=== PATIENT | male | born 1955 | race Caucasian/White ===

== ENCOUNTER 2017-07-25 13:43 | Emergency (ER) | payer OTHER ==
[~2017-07-25] VITALS: Ht 170.2 cm; Wt 72.7 kg
[~2017-07-25 13:43] MED LIST: ATOR40TA28 PO; CITA20TA9 PO; CLOP75 PO; DIVA500T52 PO; DOCU250C91 PO; FINA5TAB41 PO; KPHOS250 PO; LEVE500T53 PO; METO25 PO; PANT40TA25 PO; TAMS0.4C32 PO; TOLT4CAP33 PO
[2017-07-25] MEDS ORDERED: MIRT15 PO (14:16)
[2017-07-25] MEDS ORDERED: ASPI81 PO (14:16)
[2017-07-25] MEDS ORDERED: TOLT2CAP27 PO (14:16)
[2017-07-25] MEDS ORDERED: LEVE250T55 PO (14:16)
[2017-07-25] MEDS ORDERED: APIX5TAB PO (14:16)
[2017-07-25] MEDS ORDERED: CETI-290 PO (14:16)
[2017-07-25] MEDS ORDERED: SENN8.6T90 PO (14:16)
[2017-07-25] MEDS ORDERED: TAMS0.4C32 PO (14:16)
[2017-07-25] MEDS ORDERED: ACETAMINOPHEN 500 MG TABLET PO ONE (14:30)
[2017-07-25 14:46] LABS: BASOPHILS # (AUTO) 0.01 K/uL (0.00-0.20); BASOPHILS % (AUTO) 0.2 % (0.0-2.0); EOSINOPHILS % (AUTO) 0.05 % (1.0-6.0); HEMOGLOBIN 14.8 g/dL (13.5-17.5); LYMPHOCYTES # (AUTO) 0.7 K/uL (1.0-4.8); LYMPHOCYTES % (AUTO) 9.9 % (22.0-44.0); MEAN CORPUSCULAR HEMOGLOBIN 32.3 pg (26.0-34.0); MEAN CORPUSCULAR HGB CONC 33.6 G/dL (31.0-37.0); MEAN CORPUSCULAR VOLUME 96 fL (80-100); MONOCYTES # (AUTO) 0.3 K/uL (0.1-1.0); MONOCYTES % (AUTO) 3.7 % (2.0-9.0); NEUTROPHILS # (AUTO) 6.2 K/uL (1.8-7.7); PLATELET COUNT (AUTO) 135 K/uL (150-450); RED BLOOD CELL COUNT(AUTO) 4.57 MIL/uL (4.50-5.90); RED CELL DISTRIBUTION WIDTH 13.8 % (11.5-14.5)
[2017-07-25 14:48] LABS: NEUTROPHILS % (AUTO) 86.2 % (40.0-70.0)
[2017-07-25 14:55] LABS: ANION GAP 6 mmol/L (8-16); CALCIUM, TOTAL 8.7 mg/dL (8.8-10.5); CARBON DIOXIDE 32 mmol/L (22-29); CHLORIDE 104 mmol/L (98-107); CREATININE 0.96 mg/dL (0.60-1.30); GLOMERULAR FILTR. RATE CALC > 60 mL/min (>60); GLUCOSE,RANDOM 103 mg/dL (70-110); POTASSIUM 4.6 mmol/L (3.5-5.1); SODIUM SERUM 142 mmol/L (136-145); UREA NITROGEN, BLOOD 13 mg/dL (7-18)
[2017-07-25 15:40] LABS: PLATELET MORPHOLOGY COMMENT DECREASED
[2017-07-25 16:10] LABS: INFLUENZA TYPE A NEGATIVE FOR TYPE A (NEGATIVE); INFLUENZA TYPE B NEGATIVE FOR TYPE B (NEGATIVE)
[2017-07-25 17:32] VITALS: BP 125/72
== END 2017-07-25 17:42 | disposition home or self-care (01) ==
LOC: EMS 13:43
DX: S70.02XA Contusion of left hip, initial encounter (principal); J11.1 Influenza due to unidentified influenza virus with other respiratory manifestations; F32.9 Major depressive disorder, single episode, unspecified; K21.9 Gastro-esophageal reflux disease without esophagitis; E78.00 Pure hypercholesterolemia, unspecified; I10 Essential (primary) hypertension; N40.0 Benign prostatic hyperplasia without lower urinary tract symptoms; Z88.0 Allergy status to penicillin; Z79.82 Long term (current) use of aspirin; Z79.01 Long term (current) use of anticoagulants; Z86.73 Personal history of transient ischemic attack (TIA), and cerebral infarction without residual deficits; W01.0XXA Fall on same level from slipping, tripping and stumbling without subsequent striking against object, initial encounter; Y93.89 Activity, other specified; Y92.89 Other specified places as the place of occurrence of the external cause; Y99.8 Other external cause status
CPT/HCPCS: 73503; 87804; 99285

== ENCOUNTER 2019-09-01 11:42 | Emergency (ER) | payer MEDICARE, OTHER ==
[~2019-09-01] VITALS: Ht 167.6 cm; Wt 75.5 kg
[~2019-09-01 11:42] MED LIST changes: +APIX5TAB PO; +ASPI-728 PO; +CETI10TA59 PO; +CITA-106 PO; -CITA20TA9 PO; -CLOP75 PO; +CLOP75TA3 PO; +DOCU-342 PO; -DOCU250C91 PO; +FINA-27 PO; -FINA5TAB41 PO; +LEVE250T55 PO; -LEVE500T53 PO; +MIRT-92 PO; +SENN8.6T90 PO; +TAMS-13 PO; -TAMS0.4C32 PO; +TOLT2CAP PO; -TOLT4CAP33 PO
[2019-09-01] MEDS ORDERED: LOPE-202 PO (12:03)
[2019-09-01] MEDS ORDERED: FIBERT PO (12:03)
[2019-09-01 16:00] VITALS: BP 121/74
== END 2019-09-01 16:03 | disposition home or self-care (01) ==
LOC: EMS 11:42
DX: S70.02XA Contusion of left hip, initial encounter (principal); S09.90XA Unspecified injury of head, initial encounter; M54.2 Cervicalgia; E78.00 Pure hypercholesterolemia, unspecified; I10 Essential (primary) hypertension; K21.9 Gastro-esophageal reflux disease without esophagitis; Z79.899 Other long term (current) drug therapy; Z86.73 Personal history of transient ischemic attack (TIA), and cerebral infarction without residual deficits; Z88.0 Allergy status to penicillin; Z79.01 Long term (current) use of anticoagulants; W01.0XXA Fall on same level from slipping, tripping and stumbling without subsequent striking against object, initial encounter; Y93.89 Activity, other specified; Y92.89 Other specified places as the place of occurrence of the external cause; Y99.8 Other external cause status
CPT/HCPCS: 70450; 72125; 73503

== ENCOUNTER 2023-01-11 18:53 | Emergency (ER) | payer MEDICARE, OTHER ==
[~2023-01-11] VITALS: Ht 170.2 cm; Wt 77.3 kg
[~2023-01-11 18:53] MED LIST changes: +ASPI-1450 PO; -ASPI-728 PO; +CETI-450 PO; -CETI10TA59 PO; -CITA-106 PO; +CITA-144 PO; -CLOP75TA3 PO; -DIVA500T52 PO; +DIVA500T53 PO; -DOCU-342 PO; +DOCU-350 PO; +FIBERT PO; +LEVE250T4 PO; -LEVE250T55 PO; +LOPE-202 PO; +MIRT-89 PO; -MIRT-92 PO; +PANT-31 PO; -PANT40TA25 PO
[2023-01-11 19:01] VITALS: TEMP 98.8
[2023-01-11 20:39] LABS: EOSINOPHILS % (AUTO) 0.6 % (1.0-6.0); HEMATOCRIT 34.1 % (41-53); HEMOGLOBIN 11.6 g/dL (13.5-17.5); LYMPHOCYTES # (AUTO) 1.5 K/uL (1.0-4.8); LYMPHOCYTES % (AUTO) 28.8 % (22.0-44.0); MEAN CORPUSCULAR HGB CONC 34.2 G/dL (31.0-37.0); MEAN CORPUSCULAR VOLUME 100 fL (80-100); MONOCYTES # (AUTO) 0.6 K/uL (0.1-1.0); MONOCYTES % (AUTO) 11.6 % (2.0-9.0); PLATELET COUNT (AUTO) 202 K/uL (150-450); RED BLOOD CELL COUNT(AUTO) 3.42 MIL/uL (4.50-5.90); RED CELL DISTRIBUTION WIDTH 13.9 % (11.5-14.5)
[2023-01-11 21:14] LABS: ANION GAP 9 mmol/L (8-16); CALCIUM, TOTAL 8.5 mg/dL (8.8-10.5); CARBON DIOXIDE 29 mmol/L (22-29); CHLORIDE 103 mmol/L (98-107); CREATININE 0.66 mg/dL (0.60-1.30); GLOMERULAR FILTR. RATE CALC > 60 mL/min (>60); GLUCOSE,RANDOM 102 mg/dL (70-110); POTASSIUM 3.9 mmol/L (3.5-5.1); SODIUM SERUM 141 mmol/L (136-145)
[2023-01-11 21:20] LABS: ALANINE AMINOTRANSFERASE 12 U/L (12-78); ALBUMIN 2.2 g/dL (3.4-5.0); ALKALINE PHOSPHATASE 56 U/L (46-116); ASPARTATE AMINOTRANSFERASE 19 U/L (15-37); BILIRUBIN,TOTAL 0.4 mg/dL (0.1-1.0); TOTAL PROTEIN, SERUM 6.8 g/dL (6.4-8.2)
[2023-01-12 03:17] VITALS: BP 122/63; PULSE 69; RESP 16
== END 2023-01-11 23:19 | disposition home or self-care (01) ==
LOC: EMS 18:55
DX: S82.892D Other fracture of left lower leg, subsequent encounter for closed fracture with routine healing (principal); E78.00 Pure hypercholesterolemia, unspecified; I10 Essential (primary) hypertension; N40.0 Benign prostatic hyperplasia without lower urinary tract symptoms; Z88.0 Allergy status to penicillin; X58.XXXD Exposure to other specified factors, subsequent encounter
CPT/HCPCS: 80053; 85025; 99285

== ENCOUNTER 2023-01-13 13:29 | Inpatient (IN) | payer MEDICARE, OTHER ==
[~2023-01-13] VITALS: Ht 170.2 cm; Wt 70.0 kg
[2023-01-13] MEDS ORDERED: AMIO200T68 PO (13:49)
[2023-01-13] MEDS ORDERED: HYDROCODONE/ACETAMINOPHEN 5-325 MG TABLET PO ONE (14:00)
[2023-01-13 14:32] LABS: BASOPHILS % (AUTO) 0.8 % (0.0-2.0); EOSINOPHILS % (AUTO) 0.4 % (1.0-6.0); HEMATOCRIT 36.3 % (41-53); HEMOGLOBIN 12.1 g/dL (13.5-17.5); LYMPHOCYTES # (AUTO) 2.4 K/uL (1.0-4.8); LYMPHOCYTES % (AUTO) 25.8 % (22.0-44.0); MEAN CORPUSCULAR HEMOGLOBIN 33.3 pg (26.0-34.0); MEAN CORPUSCULAR HGB CONC 33.3 G/dL (31.0-37.0); MEAN CORPUSCULAR VOLUME 100 fL (80-100); MONOCYTES # (AUTO) 0.9 K/uL (0.1-1.0); MONOCYTES % (AUTO) 10.1 % (2.0-9.0); NEUTROPHILS # (AUTO) 5.8 K/uL (1.8-7.7); NEUTROPHILS % (AUTO) 62.9 % (40.0-70.0); RED BLOOD CELL COUNT(AUTO) 3.63 MIL/uL (4.50-5.90); RED CELL DISTRIBUTION WIDTH 13.9 % (11.5-14.5)
[2023-01-13 14:58] LABS: ANION GAP 10 mmol/L (8-16); CALCIUM, TOTAL 9.1 mg/dL (8.8-10.5); CARBON DIOXIDE 28 mmol/L (22-29); CHLORIDE 103 mmol/L (98-107); CREATININE 0.65 mg/dL (0.60-1.30); GLOMERULAR FILTR. RATE CALC > 60 mL/min (>60); GLUCOSE,RANDOM 98 mg/dL (70-110); POTASSIUM 4.3 mmol/L (3.5-5.1); SODIUM SERUM 141 mmol/L (136-145)
[2023-01-13 15:04] LABS: ALANINE AMINOTRANSFERASE 12 U/L (12-78); ALBUMIN 2.3 g/dL (3.4-5.0); ALKALINE PHOSPHATASE 66 U/L (46-116); ASPARTATE AMINOTRANSFERASE 21 U/L (15-37); BILIRUBIN,TOTAL 0.5 mg/dL (0.1-1.0)
[2023-01-13 15:08] LABS: PLATELET COUNT (AUTO) 270 K/uL (150-450)
[2023-01-13] MEDS ORDERED: ZOLPIDEM TARTRATE 5 MG TABLET PO PRN (15:30)
[2023-01-13] MEDS ORDERED: 0.9% SODIUM CHLORIDE 10 ML SYRINGE IVP PRN (15:30)
[2023-01-13] MEDS ORDERED: ACETAMINOPHEN 325 MG TABLET PO PRN ×2 (15:30)
[2023-01-13] MEDS ORDERED: MORPHINE SULFATE 2 MG/ML SYRINGE IVP PRN (15:30)
[2023-01-13] MEDS ORDERED: BISACODYL 10 MG RECTAL RECTAL SUPPOSITORY PR PRN (15:30)
[2023-01-13] MEDS ORDERED: MAGNESIUM HYDROXIDE SUSPENSION 30 ML UDCUP PO PRN (15:30)
[2023-01-13] MEDS ORDERED: ONDANSETRON HCL 4 MG/2 ML VIAL IVP PRN ×2 (15:30)
[2023-01-13 17:25] LABS: COVID AG,FIA SOURCE NASAL SWAB
[2023-01-13] MEDS: DOCUSATE SODIUM 100 MG CAPSULE PO SCH (21:00)
[2023-01-13] MEDS: TAMSULOSIN HCL 0.4 MG CAPSULE PO SCH (21:00)
[2023-01-13 21:14] VITALS: BP 154/72; PULSE 60; RESP 20; TEMP 99
[2023-01-13] MEDS: DIVALPROEX SODIUM 500 MG ER TABLET PO SCH (23:47)
[2023-01-13] MEDS: HYDROCODONE/ACETAMINOPHEN 5-325 MG TABLET PO PRN (23:48)
[2023-01-13] MEDS: MIRTAZAPINE 15 MG TABLET PO SCH (23:48)
[2023-01-13] MEDS: METOPROLOL TARTRATE 25 MG TABLET PO SCH (23:48)
[2023-01-13] MEDS: APIXABAN 5 MG TABLET PO SCH (23:48)
[2023-01-13] MEDS: LevETIRAcetam 250 MG TABLET PO SCH (23:49)
[2023-01-13] MEDS: AMIODARONE HCL 200 MG TABLET PO SCH (23:53)
[2023-01-14 00:05] VITALS: RESP 16
[2023-01-14 04:10] VITALS: BP 116/63; PULSE 60; RESP 0; TEMP 97.9
[2023-01-14 06:23] LABS: BASOPHILS % (AUTO) 0.7 % (0.0-2.0); HEMATOCRIT 36.5 % (41-53); HEMOGLOBIN 11.9 g/dL (13.5-17.5); LYMPHOCYTES # (AUTO) 1.9 K/uL (1.0-4.8); LYMPHOCYTES % (AUTO) 33.9 % (22.0-44.0); MEAN CORPUSCULAR HEMOGLOBIN 32.4 pg (26.0-34.0); MEAN CORPUSCULAR HGB CONC 32.6 G/dL (31.0-37.0); MEAN CORPUSCULAR VOLUME 99 fL (80-100); MONOCYTES # (AUTO) 0.5 K/uL (0.1-1.0); MONOCYTES % (AUTO) 9.5 % (2.0-9.0); NEUTROPHILS # (AUTO) 3.1 K/uL (1.8-7.7); NEUTROPHILS % (AUTO) 54.9 % (40.0-70.0); PLATELET COUNT (AUTO) 274 K/uL (150-450); RED BLOOD CELL COUNT(AUTO) 3.68 MIL/uL (4.50-5.90); RED CELL DISTRIBUTION WIDTH 13.7 % (11.5-14.5)
[2023-01-14 06:48] LABS: ALANINE AMINOTRANSFERASE 12 U/L (12-78); ALBUMIN 2.3 g/dL (3.4-5.0); ALKALINE PHOSPHATASE 70 U/L (46-116); ANION GAP 5 mmol/L (8-16); ASPARTATE AMINOTRANSFERASE 20 U/L (15-37); BILIRUBIN,TOTAL 0.5 mg/dL (0.1-1.0); CARBON DIOXIDE 31 mmol/L (22-29); CHLORIDE 104 mmol/L (98-107); CREATININE 0.67 mg/dL (0.60-1.30); GLOMERULAR FILTR. RATE CALC > 60 mL/min (>60); GLUCOSE,RANDOM 94 mg/dL (70-110); POTASSIUM 4.2 mmol/L (3.5-5.1); SODIUM SERUM 140 mmol/L (136-145); TOTAL PROTEIN, SERUM 7.2 g/dL (6.4-8.2)
[2023-01-14 08:00] VITALS: BP 135/54; PULSE 60; RESP 18; TEMP 98.2
[2023-01-14] MEDS: CETIRIZINE HCL 10 MG TABLET PO SCH (08:41)
[2023-01-14] MEDS: ASPIRIN 81 MG CHEWABLE TABLET PO SCH (08:42)
[2023-01-14] MEDS: APIXABAN 5 MG TABLET PO SCH ×2 (08:42→19:46)
[2023-01-14] MEDS: AMIODARONE HCL 200 MG TABLET PO SCH ×2 (08:42→19:47)
[2023-01-14] MEDS: METOPROLOL TARTRATE 25 MG TABLET PO SCH ×2 (08:42→19:47)
[2023-01-14] MEDS: DOCUSATE SODIUM 100 MG CAPSULE PO SCH ×2 (08:42→19:45)
[2023-01-14] MEDS: LevETIRAcetam 250 MG TABLET PO SCH ×2 (08:42→19:47)
[2023-01-14] MEDS: PANTOPRAZOLE SODIUM 40 MG DR TABLET PO SCH (08:42)
[2023-01-14] MEDS: DIVALPROEX SODIUM 500 MG ER TABLET PO SCH ×2 (08:42→19:45)
[2023-01-14] MEDS: TOLTERODINE TARTRATE 2 MG ER CAPSULE PO SCH (08:43)
[2023-01-14] MEDS: CITALOPRAM HYDROBROMIDE 20 MG TABLET PO SCH (08:43)
[2023-01-14] MEDS: ATORVASTATIN CALCIUM 40 MG TABLET PO SCH (08:43)
[2023-01-14] MEDS: FINASTERIDE 5 MG TABLET PO SCH (08:49)
[2023-01-14] MEDS: HYDROCODONE/ACETAMINOPHEN 5-325 MG TABLET PO PRN ×2 (08:49→19:45)
[2023-01-14 16:00] VITALS: BP 107/53; PULSE 61; RESP 18; TEMP 98
[2023-01-14 19:35] VITALS: BP 114/59; PULSE 69; RESP 20; TEMP 97.8
[2023-01-14] MEDS: TAMSULOSIN HCL 0.4 MG CAPSULE PO SCH (19:46)
[2023-01-14] MEDS: MIRTAZAPINE 15 MG TABLET PO SCH (19:47)
[2023-01-15 04:25] VITALS: BP 132/68; PULSE 60; RESP 20; TEMP 98.5
[2023-01-15] MEDS: HYDROCODONE/ACETAMINOPHEN 5-325 MG TABLET PO PRN ×3 (04:28→21:00)
[2023-01-15 07:52] VITALS: BP 127/66; PULSE 60; RESP 20; TEMP 97.7
[2023-01-15] MEDS: PANTOPRAZOLE SODIUM 40 MG DR TABLET PO SCH (08:15)
[2023-01-15] MEDS: ASPIRIN 81 MG CHEWABLE TABLET PO SCH (08:16)
[2023-01-15] MEDS: LevETIRAcetam 250 MG TABLET PO SCH ×2 (08:16→20:58)
[2023-01-15] MEDS: DOCUSATE SODIUM 100 MG CAPSULE PO SCH ×2 (08:16→20:58)
[2023-01-15] MEDS: DIVALPROEX SODIUM 500 MG ER TABLET PO SCH ×2 (08:16→20:57)
[2023-01-15] MEDS: METOPROLOL TARTRATE 25 MG TABLET PO SCH ×2 (08:16→20:59)
[2023-01-15] MEDS: ATORVASTATIN CALCIUM 40 MG TABLET PO SCH (08:16)
[2023-01-15] MEDS: FINASTERIDE 5 MG TABLET PO SCH (08:17)
[2023-01-15] MEDS: TOLTERODINE TARTRATE 2 MG ER CAPSULE PO SCH (08:17)
[2023-01-15] MEDS: AMIODARONE HCL 200 MG TABLET PO SCH ×2 (08:17→20:58)
[2023-01-15] MEDS: APIXABAN 5 MG TABLET PO SCH ×2 (08:17→20:58)
[2023-01-15] MEDS: CITALOPRAM HYDROBROMIDE 20 MG TABLET PO SCH (08:18)
[2023-01-15] MEDS: CETIRIZINE HCL 10 MG TABLET PO SCH (08:18)
[2023-01-15 16:01] VITALS: BP 108/61; PULSE 58; RESP 20; TEMP 98.3
[2023-01-15 20:00] VITALS: BP 101/55; PULSE 59; RESP 16; TEMP 98.9
[2023-01-15] MEDS: MIRTAZAPINE 15 MG TABLET PO SCH (20:58)
[2023-01-15] MEDS: TAMSULOSIN HCL 0.4 MG CAPSULE PO SCH (20:58)
[2023-01-16 04:30] VITALS: BP 139/60; PULSE 56; RESP 18; TEMP 97.9
[2023-01-16 08:33] VITALS: BP 128/75; PULSE 59; RESP 18; TEMP 97.9
[2023-01-16] MEDS: DIVALPROEX SODIUM 500 MG ER TABLET PO SCH (08:49)
[2023-01-16] MEDS: PANTOPRAZOLE SODIUM 40 MG DR TABLET PO SCH (08:49)
[2023-01-16] MEDS: DOCUSATE SODIUM 100 MG CAPSULE PO SCH (08:49)
[2023-01-16] MEDS: ATORVASTATIN CALCIUM 40 MG TABLET PO SCH (08:49)
[2023-01-16] MEDS: APIXABAN 5 MG TABLET PO SCH (08:50)
[2023-01-16] MEDS: ASPIRIN 81 MG CHEWABLE TABLET PO SCH (08:50)
[2023-01-16] MEDS: TOLTERODINE TARTRATE 2 MG ER CAPSULE PO SCH (08:50)
[2023-01-16] MEDS: FINASTERIDE 5 MG TABLET PO SCH (08:50)
[2023-01-16] MEDS: CITALOPRAM HYDROBROMIDE 20 MG TABLET PO SCH (08:51)
[2023-01-16] MEDS: LevETIRAcetam 250 MG TABLET PO SCH (08:51)
[2023-01-16] MEDS: CETIRIZINE HCL 10 MG TABLET PO SCH (08:52)
[2023-01-16] MEDS: HYDROCODONE/ACETAMINOPHEN 5-325 MG TABLET PO PRN (08:58)
[2023-01-16] MEDS: AMIODARONE HCL 200 MG TABLET PO SCH (09:00)
[2023-01-16] MEDS: METOPROLOL TARTRATE 25 MG TABLET PO SCH (09:00)
[2023-01-16] MEDS ORDERED: ACET-2247 PO (13:51)
[2023-01-16] MEDS ORDERED: HYDR-4723 PO (13:52)
[2023-01-16 15:04] VITALS: BP 117/64; PULSE 63; RESP 18; TEMP 98.8
== END 2023-01-16 16:50 | DRG 563 ==
LOC: EMS 13:29 → 6S 18:35
PROVIDERS: ADMIT Internal Medicine; ATTEND Internal Medicine
DX: S82.892A Other fracture of left lower leg, initial encounter for closed fracture (principal); I48.20 Chronic atrial fibrillation, unspecified; I69.354 Hemiplegia and hemiparesis following cerebral infarction affecting left non-dominant side; Z20.822 Contact with and (suspected) exposure to COVID-19; I10 Essential (primary) hypertension; F32.9 Major depressive disorder, single episode, unspecified; X58.XXXA Exposure to other specified factors, initial encounter; G40.909 Epilepsy, unspecified, not intractable, without status epilepticus; K21.9 Gastro-esophageal reflux disease without esophagitis; J30.9 Allergic rhinitis, unspecified; N40.0 Benign prostatic hyperplasia without lower urinary tract symptoms; E78.00 Pure hypercholesterolemia, unspecified; Z79.01 Long term (current) use of anticoagulants; Z79.82 Long term (current) use of aspirin; Z79.899 Other long term (current) drug therapy; Z88.0 Allergy status to penicillin; Y93.89 Activity, other specified; Y92.89 Other specified places as the place of occurrence of the external cause; Y99.8 Other external cause status
CPT/HCPCS: 80053; 85025; 97110; 97530; 99285